=== PATIENT | male | born 1990 | race Hispanic/Latino ===

== ENCOUNTER 2017-10-27 17:52 | Emergency (ER) | payer BC ==
[2017-10-27] MEDS ORDERED: TETRACAINE HCL 0.5% 2ML OPTH ONE (18:12)
[2017-10-27] MEDS ORDERED: FLUORESCEIN SODIUM 0.6 MG/WRAP ONE (18:12)
--- NOTE | 2017-10-27 18:45 | EDPHYS ---
Physician Documentation [facility] Name: Maurilio Klein Age: 27 yrs Sex: Male : 1990 Arrival Date: 10/27/2017 Time: 17:56 Bed 5 Private MD: Donnell Padilla E ED Physician Dago Ferreira HPI: 10/27 18:38 This 27 yrs old Male presents to ER via Ambulatory with complaints of Eye jr8 Injury. 18:38 The patient is experiencing pain, redness, tearing, The patient sustained Unknown. to jr8 the left eye. Onset: The symptoms/episode began/occurred acutely, yesterday. Duration: the symptoms are continuous. Aggravated by light, opening eye, Alleviated by nothing. Associated signs and symptoms: Pertinent positives: None. Patient does not utilize any form of vision correction. Severity of symptoms: At their worst the symptoms were mild in the emergency department the symptoms are unchanged. The patient has not experienced similar symptoms in the past. The patient has not recently seen a physician. Patient is a master welder. Stated that he had protective shield on at work. No pain while at work. When he got home noticed irritation to eye. Has continued on since then. Historical: - Allergies: 18:11 hydrocodone; ch - Home Meds: 18:11 None [Active]; ch - PMHx: 18:11 None; ch - PSHx: 18:11 None; ch - Immunization history:: Adult Immunizations up to date. - Social history:: Smoking status: Patient/guardian denies using tobacco, Patient/guardian denies using alcohol, street drugs. - Ebola Screening: : Patient negative for fever greater than or equal to 101.5 degrees Fahrenheit, and additional compatible Ebola Virus Disease symptoms Patient denies exposure to infectious person Patient denies travel to an Ebola-affected area in the 21 days before illness onset No symptoms or risks identified at this time. ROS: 18:38 ENT: Negative for injury, pain, and discharge, Neck: Negative for injury, pain, and jr8 swelling, Cardiovascular: Negative for chest pain, palpitations, and edema, Respiratory: Negative for shortness of breath, cough, wheezing, and pleuritic chest pain, Abdomen/GI: Negative for abdominal pain, nausea, vomiting, diarrhea, and constipation, Back: Negative for injury and pain, MS/Extremity: Negative for injury and deformity, Skin: Negative for injury, rash, and discoloration, Neuro: Negative for headache, weakness, numbness, tingling, and seizure. 18:38 Eyes: Positive for pain, redness, tearing, of the left eye. Exam: 18:38 Visual Acuity: Visual acuity is within normal limits. jr8 18:38 Head/Face: Normocephalic, atraumatic. ENT: Nares patent. No nasal discharge, no septal abnormalities noted. Tympanic membranes are normal and external auditory canals are clear. Oropharynx with no redness, swelling, or masses, exudates, or evidence of obstruction, uvula midline. Mucous membranes moist. Neck: Trachea midline, no thyromegaly or masses palpated, and no cervical lymphadenopathy. Supple, full range of motion without nuchal rigidity, or vertebral point tenderness. No Meningismus. Cardiovascular: Regular rate and rhythm with a normal S1 and S2. No gallops, murmurs, or rubs. Normal PMI, no JVD. No pulse deficits. Respiratory: Lungs have equal breath sounds bilaterally, clear to auscultation and percussion. No rales, rhonchi or wheezes noted. No increased work of breathing, no retractions or nasal flaring. Skin: Warm, dry with normal turgor. Normal color with no rashes, no lesions, and no evidence of cellulitis. MS/ Extremity: Pulses equal, no cyanosis. Neurovascular intact. Full, normal range of motion. Neuro: Awake and alert, GCS 15, oriented to person, place, time, and situation. Cranial nerves II-XII grossly intact. Motor strength 5/5 in all extremities. Sensory grossly intact. Cerebellar exam normal. Normal gait. 18:38 Eyes: Periorbital structures: appear normal, Pupils: equal, round, and reactive to light and accomodation, Extraocular movements: intact throughout, Conjunctiva: injected, in the left eye, tearing noted, in left eye, Corneas: foreign body, on the left, at 4 o'clock, a piece of metal, a fluorescein strip employed to appreciate the findings, Anterior chamber: normal, Lids and lashes: appear normal, Examination of the other eye reveals no obvious gross abnormality. Vital Signs: 18:11 BP 140 / 90; Pulse 84; Resp 14; Temp 97.9; Pulse Ox 100% on R/A; Weight 112.49 kg; ch Height 5 ft. 10 in. (177.80 cm); Pain 7/10; 19:07 BP 128 / 81; Pulse 76; Resp 14; Temp 97.9; Pulse Ox 99% on R/A; Pain 0/10; ch 18:11 Body Mass Index 35.58 (112.49 kg, 177.80 cm) ch Visual Acuity: 18:13 Left Eye Visual acuity 20/100, Normal, Reactive To Accomodation; Right Eye Visual ch acuity 20/30, Normal, Reactive To Accomodation; Both Eyes Visual acuity 20/30; Without Lenses; pt states he wears a contact in his L eye, its his bad eye. states he has not worn a contact in a while MDM: 18:15 Patient medically screened. jr8 18:38 Data reviewed: vital signs, nurses notes, and as a result, I will discharge patient. jr8 Data interpreted: Pulse oximetry: on room air is 100 %. Interpretation: normal. Counseling: I had a detailed discussion with the patient and/or guardian regarding: the historical points, exam findings, and any diagnostic results supporting the discharge/admit diagnosis, the need for outpatient follow up, an opthalmologist, to return to the emergency department if symptoms worsen or persist or if there are any questions or concerns that arise at home. ED course: Discussed with patient that there is a FB in the cornea. To small for us to extract at the ED. Will need to call and follow up with ophthalmology tomorrow morning. Gave contact information for Dr. Fields. Patient is good with this and will follow up . Administered Medications: No medications were administered Disposition: 10/28 07:08 Co-signature as Attending Physician, Dago Ferreira MD I agree with the assessment and emily plan of care. Disposition: 10/27/17 18:44 Discharged to Home. Impression: Foreign body in cornea, left eye. - Condition is Stable. - Discharge Instructions: Eye Foreign Body. - Prescriptions for Gentamicin 0.3 % Ophthalmic Drops - instill 2 drops by OPHTHALMIC route every 4 hours for 7 days; 1 bottle. - Work release form, Medication Reconciliation Form, Thank You Letter, Antibiotic Education, Prescription Opioid Use form. - Follow up: Karthik Fields MD; When: Tomorrow; Reason: Recheck today's complaints, Continuance of care, Re-evaluation by your physician. - Problem is new. - Symptoms have improved. Signatures: Key Ken RN RN ch Anderson, Corey, MD MD cha Roszak, Josh, PA PA jr8 Corrections: (The following items were deleted from the chart) 10/27 19:08 18:44 10/27/2017 18:44 Discharged to Home. Impression: Foreign body in cornea, left ch eye. Condition is Stable. Forms are Medication Reconciliation Form, Thank You Letter, Antibiotic Education, Prescription Opioid Use. Follow up: Karhtik Fields; When: Tomorrow; Reason: Recheck today's complaints, Continuance of care, Re-evaluation by your physician. Problem is new. Symptoms have improved. jr8
--- NOTE | 2017-10-27 18:45 | ER ---
Nurse's Notes [facility] Name: Maurilio Klein Age: 27 yrs Sex: Male : 1990 Arrival Date: 10/27/2017 Time: 17:56 Bed 5 Private MD: Donnell Padilla E Diagnosis: Foreign body in cornea, left eye Presentation: 10/27 18:09 Presenting complaint: Patient states: pain to L eye started last night. I thought there ch was something in it. 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 Transition of care: patient was not received from another setting of care. Mechanism of Injury: welding. The patient denies any loss of vision. Onset of symptoms was October 26, 2017 at 15:00. Risk Assessment: Do you want to hurt yourself or someone else? Patient reports no desire to harm self or others. Initial Sepsis Screen: Does the patient meet any 2 criteria? No. Patient's initial sepsis screen is negative. Does the patient have a suspected source of infection? No. Patient's initial sepsis screen is negative. Care prior to arrival: None. 18:09 Method Of Arrival: Ambulatory 18:09 Acuity: APRIL 4 ch Triage Assessment: 18:11 General: Appears in no apparent distress. comfortable, Behavior is calm, cooperative, ch appropriate for age. Pain: Complains of pain in left eye Pain currently is 7 out of 10 on a pain scale. Pain began suddenly, yesterday afternoon. EENT: Eyes are tearing on left eye. Neuro: No deficits noted. Cardiovascular: No deficits noted. Respiratory: No deficits noted. Derm: Skin is pink, warm \T\ dry. Historical: - Allergies: 18:11 hydrocodone; ch - Home Meds: 18:11 None [Active]; ch - PMHx: 18:11 None; ch - PSHx: 18:11 None; ch - Immunization history:: Adult Immunizations up to date. - Social history:: Smoking status: Patient/guardian denies using tobacco, Patient/guardian denies using alcohol, street drugs. - Ebola Screening: : Patient negative for fever greater than or equal to 101.5 degrees Fahrenheit, and additional compatible Ebola Virus Disease symptoms Patient denies exposure to infectious person Patient denies travel to an Ebola-affected area in the 21 days before illness onset No symptoms or risks identified at this time. Screenin:13 Abuse screen: Denies threats or abuse. Denies injuries from another. Nutritional ch screening: No deficits noted. Tuberculosis screening: No symptoms or risk factors identified. Fall Risk None identified. Assessment: 18:13 Reassessment: Patient appears in no apparent distress at this time. Patient and/or ch family updated on plan of care and expected duration. Pain level reassessed. Patient is alert, oriented x 3, equal unlabored respirations, skin warm/dry/pink. 19:07 Reassessment: Patient appears in no apparent distress at this time. Patient and/or ch family updated on plan of care and expected duration. Pain level reassessed. Patient is alert, oriented x 3, equal unlabored respirations, skin warm/dry/pink. Patient states feeling better. Patient states symptoms have improved. 19:08 EENT: Sclera/Cornea are reddened in outer aspect of conjuctiva of left eye and inner ch aspect of conjunctiva of left eye. Vital Signs: 18:11 BP 140 / 90; Pulse 84; Resp 14; Temp 97.9; Pulse Ox 100% on R/A; Weight 112.49 kg; ch Height 5 ft. 10 in. (177.80 cm); Pain 7/10; 19:07 BP 128 / 81; Pulse 76; Resp 14; Temp 97.9; Pulse Ox 99% on R/A; Pain 0/10; ch 18:11 Body Mass Index 35.58 (112.49 kg, 177.80 cm) ch Visual Acuity: 18:13 Left Eye Visual acuity 20/100, Normal, Reactive To Accomodation; Right Eye Visual ch acuity 20/30, Normal, Reactive To Accomodation; Both Eyes Visual acuity 20/30; Without Lenses; pt states he wears a contact in his L eye, its his bad eye. states he has not worn a contact in a while ED Course: 17:56 Patient arrived in ED. sb2 17:57 Donnell Padilla MD is Private Physician. sb2 18:09 Key Ken RN is Primary Nurse. ch 18:10 Triage completed. ch 18:11 Arm band placed on left wrist. Patient placed in an exam room, on a stretcher. ch 18:13 No apparent distress. Resting quietly. ch 18:13 Patient has correct armband on for positive identification. Placed in gown. Bed in low ch position. Call light in reach. Side rails up X 1. Pulse ox on. 18:13 No provider procedures requiring assistance completed. Patient did not have IV access ch during this emergency room visit. 18:15 Cristofer Lin PA is PHCP. jrAlyssa 18:15 Dago Ferreira MD is Attending Physician. jr8 18:44 Karthik Fields MD is Referral Physician. jr8 Administered Medications: No medications were administered Outcome: 18:44 Discharge ordered by . jr8 19:07 Discharged to home ambulatory, with family. 19:07 Condition: improved 19:07 Discharge instructions given to patient, family, Instructed on discharge instructions, follow up and referral plans. medication usage, Demonstrated understanding of instructions, follow-up care, medications, Prescriptions given X 1. 19:08 Patient left the ED. Signatures: Key Ken RN RN Cristofer Perez PA PA jr8 Yissel Chavarria sb2
== END 2017-10-27 19:08 | disposition home or self-care (01) ==
LOC: ER 17:52
DX: T15.02XA Foreign body in cornea, left eye, initial encounter (principal); X58.XXXA Exposure to other specified factors, initial encounter; Y93.9 Activity, unspecified; Y92.9 Unspecified place or not applicable; Z88.5 Allergy status to narcotic agent
CPT/HCPCS: 99283